=== PATIENT | male | born 1970 | race Two or more races ===

== ENCOUNTER 2023-05-16 14:48 | Emergency (ER) | payer OTHER ==
[~2023-05-16] VITALS: Ht 172.7 cm; Wt 180.0 kg
[2023-05-16] MEDS: HYDROcodone-ACET 10/325MG TAB PO ONE (16:31)
[2023-05-16] MEDS ORDERED: ACET-1080 PO (17:23)
[2023-05-16] MEDS ORDERED: METH-1182 PO (17:23)
[2023-05-16 17:36] VITALS: BP 137/74; PULSE 83; RESP 19; TEMP 98.1; O2SAT 97
== END 2023-05-16 17:40 | disposition home or self-care (01) ==
LOC: ER 14:48 → EDBD 14:48 → ER 17:40
DX: S16.1XXA Strain of muscle, fascia and tendon at neck level, initial encounter (principal); S29.012A Strain of muscle and tendon of back wall of thorax, initial encounter; E66.01 Morbid (severe) obesity due to excess calories; I50.9 Heart failure, unspecified; N18.9 Chronic kidney disease, unspecified; Z98.890 Other specified postprocedural states; Z68.44 Body mass index [BMI] 60.0-69.9, adult; Z79.899 Other long term (current) drug therapy; V89.2XXA Person injured in unspecified motor-vehicle accident, traffic, initial encounter; Y93.89 Activity, other specified; Y92.89 Other specified places as the place of occurrence of the external cause; Y99.8 Other external cause status
CPT/HCPCS: 72040; 72070